=== PATIENT | female | born 1990 | race Caucasian/White ===

== ENCOUNTER 2024-11-04 14:36 | Outpatient (CLI) | payer OTHER | END 2024-11-04 14:51 | disposition home or self-care (01) | LOC: CIR.AMB 14:36 → LAB 14:36 → CIR.AMB 14:51 | PROVIDERS: ATTEND Obstetrics & Gynecology | DX: R07.9 Chest pain, unspecified (principal) ==

== ENCOUNTER 2024-12-20 10:28 | Outpatient (CLI) | payer OTHER | END 2024-12-20 11:39 | disposition home or self-care (01) | LOC: NST 10:28 | PROVIDERS: ATTEND Obstetrics & Gynecology Maternal & Fetal Medicine | DX: Z34.83 Encounter for supervision of other normal pregnancy, third trimester (principal) ==